=== PATIENT | female | born 1975 | race Caucasian/White ===

== ENCOUNTER 2018-10-16 10:34 | Day surgery (SDC) | payer OTHER ==
[2018-10-16] MEDS ORDERED: BUPIVACAINE/EPI 0.5% 30 ML SDV ONE (10:41)
[2018-10-16] MEDS ORDERED: ACETAMINOPHEN 500 MG TAB PO ONE (10:43)
[2018-10-16] MEDS ORDERED: ceFAZolin 2 GM/DEXTROSE 100 ML IV ONE (10:43)
[2018-10-16] MEDS ORDERED: GABAPENTIN 300 MG CAP PO ONE (10:43)
[2018-10-16] MEDS ORDERED: PHENAZOPYRIDINE HCL 200 MG TAB PO ONE (10:43)
[2018-10-16] MEDS ORDERED: LR 1,000 ML IV ONE (10:44)
[2018-10-16] MEDS ORDERED: LIDOCAINE 1% 2 ML INJ ID PRN (10:44)
[2018-10-16] MEDS ORDERED: MIDAZOLAM 2 MG/2 ML VIAL IVP ONE (10:45)
--- NOTE | 2018-10-16 10:45 | PDANEPAE ---
ANE History of Present Illness DaVinci assist total hysterectomy ANE Past Medical History - Cardiovascular History Hx Hypertension: No Hx Arrhythmias: No Hx Chest Pain: No Hx Coronary Artery / Peripheral Vascular Disease: No Hx CHF / Valvular Disease: No Hx Palpitations: No - Pulmonary History Hx COPD: No Hx Asthma/Reactive Airway Disease: No Hx Recent Upper Respiratory Infection: No Hx Oxygen in Use at Home: No Hx Sleep Apnea: No Sleep Apnea Screening Result - Last Documented: Negative - Neurologic History Hx Cerebrovascular Accident: No Hx Seizures: No Hx Dementia: No - Endocrine History Hx Diabetes: No - Renal History Hx Renal Disorders: No - Liver History Hx Hepatic Disorders: No - Neurological & Psychiatric Hx Hx Neurological and Psychiatric Disorders: No - Cancer History Hx Cancer: Yes Cancer History Comment: skin cancer - Congenital Disorder History Hx Congenital Disorders: No - GI History Hx Gastrointestinal Disorders: No - Chronic Pain History Chronic Pain: No - Surgical History Prior Surgeries: bilat breast reduction. skin cancer removed ANE Review of Systems Review of systems is: negative Review of Systems: - Exercise capacity METS (RN): 4 METS ANE Patient History - Allergies Allergies/Adverse Reactions: No Known Allergies Allergy (Verified 10/04/18 11:13) - Home Medications Home medications: home medication list seen and reviewed Home Medications: Ibuprofen [Motrin (*)] 200 - 400 mg PO Q8H PRN 10/02/18 [Last Taken Unknown] Norethindrone-E.estradiol-Iron [Blisovi Fe 1-20 Tablet] 1 each PO DAILY [Last Taken Unknown] - NPO status NPO Since - Liquids (Date): 10/16/18 NPO Since - Liquids (Time): 05:30 NPO Since - Solids (Date): 10/15/18 - Anes Hx Anes Hx: no prior problems - Smoking Hx Smoking Status: Never smoked - Family Anes Hx Family Hx Anesthesia Complications: unknown ANE Labs/Vital Signs - Vital Signs Vital Signs: reviewed preoperatively; see RN documention for details Height: 180.34 cm Weight: 108.862 kg ANE Physical Exam - Airway Neck exam: FROM Mallampati Score: Class 2 Mouth exam: normal dental/mouth exam - Pulmonary Pulmonary: no respiratory distress - Cardiovascular Cardiovascular: regular rate and rhythym - ASA Status ASA Status: II ANE Anesthesia Plan Anesthesia Plan: general endotracheal anesthesia
[2018-10-16] MEDS ORDERED: DEXAMETHASONE 4 MG/ML VIAL ONE (10:58)
[2018-10-16] MEDS ORDERED: fentaNYL 250 MCG/5 ML INJ ONE (10:58)
[2018-10-16] MEDS ORDERED: LIDOCAINE 2% 100 MG/5 ML SYR ONE (10:58)
[2018-10-16] MEDS ORDERED: ONDANSETRON 4 MG/2 ML VIAL ONE (10:58)
[2018-10-16] MEDS ORDERED: SUGAMMADEX SODIUM 200 MG/2 ML VIAL IVP ONE ×2 (10:58→13:21)
[2018-10-16] MEDS ORDERED: ROCURONIUM 50 MG/5 ML VIAL ONE ×2 (10:58→12:58)
[2018-10-16] MEDS ORDERED: PROPOFOL 200 MG/20 ML VIAL ONE (10:59)
[2018-10-16] MEDS ORDERED: GLYCOPYRROLATE 0.2 MG/1 ML VIAL ONE ×2 (11:03→13:07)
--- NOTE | 2018-10-16 11:32 | PDHPUP ---
History & Physical Update H&P update statement: This history and physical update is based on an assessment of the patient which was completed after admission or registration (within 24 hours), but prior to the surgery/procedure. H&P update: H&P reviewed & patient examined, no change in patient's condition since H&P completed
[2018-10-16] MEDS ORDERED: MIDAZOLAM 2 MG/2 ML VIAL ONE (11:47)
[2018-10-16] MEDS ORDERED: HYDROmorphONE/DILAUDID 1 MG/ML INJ IVP PRN (12:41)
[2018-10-16] MEDS ORDERED: NALOXONE HCL 0.4 MG/ML INJ IVP PRN (12:41)
[2018-10-16] MEDS ORDERED: MEPERIDINE 25 MG/0.5 ML AMP IVP PRN (12:41)
[2018-10-16] MEDS ORDERED: oxyCODONE IR 5 MG TAB PO PRN (12:41)
[2018-10-16] MEDS ORDERED: PROMETHAZINE HCL 25 MG/ML INJ IVP PRN (12:41)
[2018-10-16] MEDS ORDERED: fentaNYL 100 MCG/2 ML INJ IVP PRN (12:41)
--- NOTE | 2018-10-16 12:42 | POSTANESTH ---
Post Anesthetic Evaluation Cardiovascular Status: Normal, Stable, Similar to Pre-Op Cond Respiratory Status: Normal, Stable, Similar to Pre-op Cond. Level of Consciousness/Mental Status: Can Participate in Eval, Mildly Sleepy, Arousable Pain Control: Adequate, Prn Tx Ordered Nausea/Vomiting Control: Adequate, Prn Tx Ordered Complications Possibly Related to Anesthesia: None Noted
[2018-10-16] MEDS ORDERED: KETOROLAC 30 MG/1 ML SDV ONE (13:07)
[2018-10-16 16:39] VITALS: BP 117/79
--- NOTE | 2018-10-17 10:43 | GOP ---
[f rep st] OPERATIVE REPORT DATE OF OPERATION: 10/16/2018 SURGEON: Ovi Sorenson MD [place] MAN: KEENAN Castellano. ANESTHESIA: General. PREOPERATIVE DIAGNOSIS: 1. Uterine fibroids. 2. Menorrhagia. 3. Dysmenorrhea. 4. Uterine prolapse. POSTOPERATIVE DIAGNOSIS: 1. Uterine fibroids. 2. Menorrhagia. 3. Dysmenorrhea. 4. Uterine prolapse. PROCEDURE PERFORMED: 1. Robotic-assisted total laparoscopic hysterectomy, bilateral salpingectomy. 2. Uterosacral ligament colpopexy. 3. Ablation of endometriosis. 4. Left ureterolysis. FINDINGS: SPECIMENS: Uterus, bilateral tubes. ESTIMATED BLOOD LOSS: Scant. DESCRIPTION OF PROCEDURE: The patient was taken to the operating room where she was identified. Gen eral anesthesia was administered and found to be adequate. She was placed in the lithotomy position and prepared and draped in normal sterile fashion. A [place] uterine manipulator was placed into the e ndometrial cavity and sutured to the cervix. A Thomas catheter was then placed. An 8 mm infraumbilical incision was made with a scalpel. The Veress needle with CO2 gas flowing was advanced into the peritoneal cavity. The abdomen was then insufflated with carbon dioxide gas. The 8 mm trocar, followed by the laparoscope, was then inserted. [facility] one on the left under direct visualization. The upper abdomen was unremarkable. Within the pel vis was a multiple fibroid uterus extending laterally and posteriorly. The patient was then placed i n Trendelenburg position and the da Valente robot docked on the left side. The instruments were anika t into the abdominal cavity under direct visualization. The left fallopian tube was along the mesosalpinx. The utero-ovarian ligament, followed by the round ligament, was then cauterized and transected. The uterus and fibroids were extending late rally to the pelvic sidewall with some adhesions to the sidewall. As a result, a left ureterolysis w as required to separate the left ureter from the cervix. The peritoneum of the pelvic rim on the lef t was incised. The ureter was gently dissected free and lateralized off the overlying peritoneum fro m the pelvic brim all the way down to the bladder. Once this was accomplished, the left uterine vasc ulature was then cauterized and transected. The bladder was gently dissected off the cervix and uppe r vagina. A similar procedure was performed on the patient's right side. A circumferential colpotom y incision was then made with the hot makenzie. The fibroids had been mostly from the uterus to alter its shape from transverse to longitudinal so it could be removed easily through the vagina. All specimens were then removed. The patient was noted to have endometriosis, mostly in the master steam yacht ior cul-de-sac and along both uterosacral ligaments. This was mostly ablated with minimal excision. The vaginal cuff was then closed with a running suture of 0 V-Loc 180. A bilateral uterosacral liga ment colpopexy was performed by attaching the lateral aspect of the vaginal cuff to the ipsilateral u terosacral ligaments near the coccygeal-sacrospinous ligament complexes. The pelvis was then irrigated with sterile saline, and hemostasis was present. The robot was then un docked. The skin was closed with 4-0 Monocryl. Anesthesia was reversed. The patient taken to PACU awake, in stable condition. COMPLICATIONS: None. DISPOSITION: Patient stable to PACU. /[id number]/MODL
== END 2018-10-16 16:34 | disposition home or self-care (01) ==
LOC: F3E 10:34 → UNDOADMOB 10:34 → FSGY 10:34 → EDSTATUS 12:00 → UNDODISOB 16:34 → FSGY 16:34
PROVIDERS: ATTEND Obstetrics & Gynecology
DX: D25.9 Leiomyoma of uterus, unspecified (principal); N84.0 Polyp of corpus uteri; N92.0 Excessive and frequent menstruation with regular cycle; N94.6 Dysmenorrhea, unspecified; N81.4 Uterovaginal prolapse, unspecified
CPT/HCPCS: J0690; J1100; J1885; J2001; J2250; J2405; J2704; J3010